=== PATIENT | female | born 1965 | race African-American/Black ===

== ENCOUNTER 2021-11-14 18:33 | Inpatient (IN) | payer MEDICAID, OTHER ==
[~2021-11-14] VITALS: Ht 175.3 cm; Wt 58.6 kg
[2021-11-14] MEDS ORDERED: ASPIRIN 81MG TABLET PO ONE (20:00)
[2021-11-14 20:22] LABS: BASOPHILS % 1.4 % (0.0-2.0); EOSINOPHILS % 0.1 % (0.0-5.0); HEMATOCRIT. 37.4 % (36.0-48.0); HEMOGLOBIN. 12.4 g/dL (12.0-16.0); LYMPHOCYTES % 22.3 % (20.0-50.0); MEAN CORPUSCULAR HEMOGLOBIN 31.7 pg (28.0-32.0); MEAN CORPUSCULAR VOLUME 95.7 fL (81.0-99.0); MEAN PLATELET VOLUME 10.7 fl (7.4-10.4); NEUTROPHILS % 71.2 % (40.0-76.0); PLATELET 230 x1000/uL (130-400); RED BLOOD CELL COUNT 3.91 mill/uL (4.2-5.4); RED CELL DISTRIBUTION WIDTH 15.8 % (11.6-14.6)
[2021-11-14 20:29] LABS: CHLORIDE 110 mEq/L (98-107)
[2021-11-14] MEDS ORDERED: CEFTRIAXONE 1 G PREMIX 50 ML IV ONE (21:30)
[2021-11-14] MEDS ORDERED: SODIUM CHLORIDE 0.9% 1000ML BAG (SEPSIS BOLUS) IV ONE (21:30)
[2021-11-14] MEDS ORDERED: AZITHROMYCIN 500MG/250ML 250 ML IV ONE (21:30)
[2021-11-14] MEDS ORDERED: ENOXAPARIN 80MG/0.8ML SYR SUBCUT ONE (22:00)
[2021-11-14 22:53] LABS: INR 1.3; PARTIAL THROMBOPLASTIN TIME 23.1 sec (23.4-31.0); PROTHROMBIN TIME 13.6 sec (9.6-11.0)
[2021-11-14] MEDS ORDERED: IOHEXOL-350 100 ML BOTTLE ONE (23:30)
[2021-11-14 23:44] LABS: CLARITY URINE CLOUDY (CLEAR); COLOR URINE DARK YELLOW (YELLOW); KETONES URINE TRACE (NEGATIVE); LEUKOCYTE ESTERASE URINE NEGATIVE (NEGATIVE); NITRITE URINE NEGATIVE (NEGATIVE); OCCULT BLOOD URINE NEGATIVE (NEGATIVE); PROTEIN URINE 2+ (NEGATIVE); SPECIFIC GRAVITY URINE 1.056 (1.005-1.030)
[2021-11-15] VITALS (32 sets, daily range): BP systolic 133–174; BP diastolic 85–107
[2021-11-15] MEDS ORDERED: ACETAMINOPHEN 325MG TABLET PO PRN (01:30)
[2021-11-15] MEDS ORDERED: IPRATROPIUM/ALBUTEROL 0.5-3(2.5)MG/3ML NEB HHN PRN ×2 (01:30→02:45)
[2021-11-15] MEDS ORDERED: NOREPINEPHRINE 8MG/250ML PMX 250 ML IV STA (01:48)
[2021-11-15] MEDS ORDERED: NOREPINEPHRINE 8MG/250ML PMX 250 ML IV PRN (02:00)
[2021-11-15] MEDS ORDERED: MIDAZOLAM HCL 100 MG in DEXT 5% WATER 80 ML IV ONE (02:00)
[2021-11-15] MEDS ORDERED: SODIUM POLYSTYRENE SULFONATE 15 G/60 ML BOT PO NR (02:00)
[2021-11-15] MEDS ORDERED: MIDAZOLAM 100MG/100ML PREMIX IV PRN (02:00)
[2021-11-15] MEDS ORDERED: EPINEPHRINE 5 MG in SODIUM CHLORIDE 0.9% 245 ML IV PRN (02:00)
[2021-11-15 02:04] LABS: BG BASE EXCESS -20.1 mmol/L (-2.0-2.0); BG CARBOXYHEMOGLOBIN 0.6 % (0.5-1.5); BG DEOXYHEMOGLOBIN 0.5 % (0.0-5.0); BG FRACTION INSPIRED OXYGEN 100; BG HCO3 ACT 6.8 mmol/L (22.0-26.0); BG METHEMOGLOBIN 0.4 % (0.0-1.5); BG OXYGEN SATURATION 99.5 % (92.0-98.5); BG OXYHEMOGLOBIN 98.5 % (94.0-97.0); BG PCO2 19.8 mmHg (35.0-45.0); BG PH 7.152 (7.350-7.450); BG PO2 299.8 mmHg (75.0-100.0); BG SAMPLE SITE LEFT BRACHIAL; BG TOTAL HEMOGLOBIN 12.5 g/dL (12.0-18.0); BG VENT MODE VENT - AC
[2021-11-15] MEDS ORDERED: SODIUM BICARBONATE 150 MEQ in DEXTROSE 5% WATER 1,000 ML IV SCH (02:15)
[2021-11-15] MEDS ORDERED: SODIUM BICARBONATE 8.4% 1 MEQ/ML 50ML SYR IV ONE ×3 (02:15→10:20)
[2021-11-15] MEDS ORDERED: MIDAZOLAM HCL 100 MG in SODIUM CHLORIDE 0.9% 100 ML IV PRN (02:15)
[2021-11-15] MEDS ORDERED: SODIUM BICARBONATE 8.4% 1 MEQ/ML 50ML SYR IV NR (02:45)
[2021-11-15] MEDS ORDERED: PHENYLEPHRINE 100 MG in DEXT 5% WATER 240 ML IV PRN ×2 (02:45→19:00)
[2021-11-15] MEDS ORDERED: FENTANYL CITRATE/PF 2,500 MCG in SODIUM CHLORIDE 0.9% 200 ML IV PRN ×2 (02:45→18:45)
[2021-11-15 03:23] LABS: CHLORIDE 108 mEq/L (98-107)
[2021-11-15 03:24] LABS: HEMOGLOBIN. 12.5 g/dL (12.0-16.0); MEAN CORPUSCULAR HEMOGLOBIN 31.7 pg (28.0-32.0); MEAN CORPUSCULAR VOLUME 101.2 fL (81.0-99.0); MEAN PLATELET VOLUME 10.1 fl (7.4-10.4); PLATELET 203 x1000/uL (130-400); RED BLOOD CELL COUNT 3.96 mill/uL (4.2-5.4); RED CELL DISTRIBUTION WIDTH 16.9 % (11.6-14.6)
[2021-11-15 03:45] LABS: *BARBITURATES SCREEN URINE NEGATIVE (NEGATIVE)
[2021-11-15 03:46] LABS: *AMPHETAMINES SCREEN URINE NEGATIVE (NEGATIVE); *BENZODIAZEPINES SCREEN URINE NEGATIVE (NEGATIVE); *COCAINE SCREEN URINE PRESUMTIVE POSITIVE (NEGATIVE); METHADONE URINE SCREEN NEGATIVE (NEGATIVE); OPIATES URINE SCREEN NEGATIVE (NEGATIVE); PHENCYCLIDINE URINE SCREEN NEGATIVE (NEGATIVE)
[2021-11-15 03:47] LABS: CANNABINOID URINE SCREEN PRESUMTIVE POSITIVE (NEGATIVE)
[2021-11-15 04:59] LABS: PLATELET ESTIMATE NORMAL
[2021-11-15 05:33] LABS: BG BASE EXCESS -7.1 mmol/L (-2.0-2.0); BG CARBOXYHEMOGLOBIN 0.9 % (0.5-1.5); BG DEOXYHEMOGLOBIN 2.1 % (0.0-5.0); BG FRACTION INSPIRED OXYGEN 60; BG HCO3 ACT 16.2 mmol/L (22.0-26.0); BG METHEMOGLOBIN 0.4 % (0.0-1.5); BG OXYGEN SATURATION 97.9 % (92.0-98.5); BG OXYHEMOGLOBIN 96.6 % (94.0-97.0); BG PH 7.397 (7.350-7.450); BG SAMPLE SITE RIGHT BRACHIAL; BG TOTAL HEMOGLOBIN 13.1 g/dL (12.0-18.0); BG VENT MODE VENT - AC
[2021-11-15] MEDS: IPRATROPIUM/ALBUTEROL 0.5-3(2.5)MG/3ML NEB HHN SCH ×2 (08:49→20:03)
[2021-11-15] MEDS ORDERED: ENOXAPARIN 40MG/0.4ML SYR SUBCUT SCH (09:00)
[2021-11-15] MEDS ORDERED: EPINEPHRINE 0.1MG/ML (1:10,000) 10ML SYR ONE (10:20)
[2021-11-15 15:53] LABS: BG BASE EXCESS 6.9 mmol/L (-2.0-2.0); BG CARBOXYHEMOGLOBIN 0.8 % (0.5-1.5); BG DEOXYHEMOGLOBIN 0.7 % (0.0-5.0); BG FRACTION INSPIRED OXYGEN 60; BG HCO3 ACT 26.8 mmol/L (22.0-26.0); BG METHEMOGLOBIN 0.4 % (0.0-1.5); BG OXYGEN SATURATION 99.3 % (92.0-98.5); BG OXYHEMOGLOBIN 98.1 % (94.0-97.0); BG PCO2 25.5 mmHg (35.0-45.0); BG PO2 182.4 mmHg (75.0-100.0); BG SAMPLE SITE LEFT RADIAL; BG TOTAL HEMOGLOBIN 13.4 g/dL (12.0-18.0)
[2021-11-15] MEDS: ASPIRIN 81MG TABLET NG SCH (16:07)
[2021-11-15] MEDS: FUROSEMIDE 40MG/4ML VIAL IVP SCH (16:07)
[2021-11-15] MEDS: METHYLPREDNISOLONE SOD SUCC 40 MG/ML VIAL IV SCH (16:07)
[2021-11-15 17:00] LABS: BG VENT MODE VENT - AC
[2021-11-15] MEDS: ENOXAPARIN 80MG/0.8ML SYR SUBCUT SCH (17:16)
[2021-11-15] MEDS: PIPERACILLIN/TAZOBACTAM 3.375 G in DEXTROSE 5% WATER 50 ML IV SCH (17:16)
[2021-11-15 17:17] LABS: CREATINE KINASE MB FRACTION 44.4 ng/mL (0.5-3.6)
[2021-11-15] MEDS: MIDAZOLAM HCL 100 MG in SODIUM CHLORIDE 0.9% 80 ML IV PRN (18:26)
[2021-11-15] MEDS: CARVEDILOL 6.25 MG TABLET PO SCH (21:02)
[2021-11-16] VITALS (82 sets, daily range): BP systolic 105–143; BP diastolic 58–95
[2021-11-16] MEDS: METHYLPREDNISOLONE SOD SUCC 40 MG/ML VIAL IV SCH ×4 (00:03→23:16)
[2021-11-16] MEDS: ISOSORBIDE DINITRATE 20MG TABLET NG SCH ×3 (00:04→16:42)
[2021-11-16] MEDS: PIPERACILLIN/TAZOBACTAM 3.375 G in DEXTROSE 5% WATER 50 ML IV SCH ×4 (00:05→21:27)
[2021-11-16] MEDS: IPRATROPIUM/ALBUTEROL 0.5-3(2.5)MG/3ML NEB HHN SCH ×4 (00:26→20:47)
[2021-11-16 06:20] LABS: HEMATOCRIT. 39.1 % (36.0-48.0); HEMOGLOBIN. 12.9 g/dL (12.0-16.0); MEAN CORPUSCULAR HEMOGLOBIN 31.4 pg (28.0-32.0); MEAN CORPUSCULAR VOLUME 95.1 fL (81.0-99.0); PLATELET 200 x1000/uL (130-400); RED BLOOD CELL COUNT 4.11 mill/uL (4.2-5.4); RED CELL DISTRIBUTION WIDTH 16.1 % (11.6-14.6)
[2021-11-16] MEDS: ENOXAPARIN 80MG/0.8ML SYR SUBCUT SCH (06:45)
[2021-11-16 06:46] LABS: CHLORIDE 107 mEq/L (98-107)
[2021-11-16] MEDS: MIDAZOLAM HCL 100 MG in SODIUM CHLORIDE 0.9% 80 ML IV PRN (06:46)
[2021-11-16 06:54] LABS: LDL CHOLESTEROL 70 mg/dL (5-100)
[2021-11-16 06:55] LABS: CREATINE KINASE 995 IU/L (26-192); HDL CHOLESTEROL 26 mg/dL (40-59)
[2021-11-16 08:54] LABS: BG BASE EXCESS 5.6 mmol/L (-2.0-2.0); BG CARBOXYHEMOGLOBIN 0.8 % (0.5-1.5); BG DEOXYHEMOGLOBIN 1.9 % (0.0-5.0); BG FRACTION INSPIRED OXYGEN 30; BG HCO3 ACT 28.6 mmol/L (22.0-26.0); BG METHEMOGLOBIN 0.2 % (0.0-1.5); BG OXYGEN SATURATION 98.1 % (92.0-98.5); BG OXYHEMOGLOBIN 97.1 % (94.0-97.0); BG PCO2 36.2 mmHg (35.0-45.0); BG PH 7.516 (7.350-7.450); BG PO2 104.4 mmHg (75.0-100.0); BG SAMPLE SITE LEFT RADIAL; BG TOTAL HEMOGLOBIN 13.3 g/dL (12.0-18.0); BG VENT MODE VENT - AC
[2021-11-16 09:22] LABS: PLATELET ESTIMATE NORMAL
[2021-11-16] MEDS: FUROSEMIDE 40MG/4ML VIAL IVP SCH (09:25)
[2021-11-16] MEDS: ASPIRIN 81MG TABLET NG SCH (09:26)
[2021-11-16] MEDS: CARVEDILOL 6.25 MG TABLET PO SCH (09:26)
[2021-11-16] MEDS ORDERED: SODIUM CHLORIDE 0.45% 1,000 ML IV ONE (12:15)
[2021-11-16] MEDS ORDERED: CARVEDILOL 6.25 MG TABLET PO NR (12:30)
[2021-11-16] MEDS ORDERED: ALBUMIN HUMAN 12.5G/250ML (5%) IV NR (13:00)
[2021-11-16] MEDS: PANTOPRAZOLE SODIUM 40 MG/VIAL IV SCH (13:20)
[2021-11-16] MEDS: KCL 20MEQ/100ML PREMIX 100 ML IV SCH ×2 (13:50→18:35)
[2021-11-16] MEDS: CARVEDILOL 12.5MG TABLET PO SCH (21:29)
[2021-11-17] VITALS (97 sets, daily range): BP systolic 108–161; BP diastolic 68–118
[2021-11-17] MEDS: IPRATROPIUM/ALBUTEROL 0.5-3(2.5)MG/3ML NEB HHN SCH ×4 (02:17→21:11)
[2021-11-17 05:14] LABS: HEMATOCRIT. 37.3 % (36.0-48.0); HEMOGLOBIN. 12.3 g/dL (12.0-16.0); MEAN CORPUSCULAR HEMOGLOBIN 31.4 pg (28.0-32.0); MEAN CORPUSCULAR VOLUME 95.5 fL (81.0-99.0); MEAN PLATELET VOLUME 11.3 fl (7.4-10.4); PLATELET 181 x1000/uL (130-400)
[2021-11-17] MEDS: PIPERACILLIN/TAZOBACTAM 3.375 G in DEXTROSE 5% WATER 50 ML IV SCH ×3 (05:32→21:10)
[2021-11-17 06:11] LABS: CHLORIDE 112 mEq/L (98-107)
[2021-11-17 06:22] LABS: CREATINE KINASE 416 IU/L (26-192)
[2021-11-17] MEDS: METHYLPREDNISOLONE SOD SUCC 40 MG/ML VIAL IV SCH ×3 (09:38→23:32)
[2021-11-17] MEDS: PANTOPRAZOLE SODIUM 40 MG/VIAL IV SCH (09:38)
[2021-11-17] MEDS: ISOSORBIDE DINITRATE 20MG TABLET NG SCH ×2 (09:39→17:12)
[2021-11-17] MEDS: FUROSEMIDE 40MG/4ML VIAL IVP SCH (09:39)
[2021-11-17] MEDS: ASPIRIN 81MG TABLET NG SCH (09:39)
[2021-11-17] MEDS: ENOXAPARIN 80MG/0.8ML SYR SUBCUT SCH (09:40)
[2021-11-17] MEDS: CARVEDILOL 12.5MG TABLET PO SCH ×2 (09:40→21:10)
[2021-11-17 11:27] LABS: BG BASE EXCESS 1.2 mmol/L (-2.0-2.0); BG CARBOXYHEMOGLOBIN 0.8 % (0.5-1.5); BG FRACTION INSPIRED OXYGEN 30; BG HCO3 ACT 24.8 mmol/L (22.0-26.0); BG METHEMOGLOBIN 0.3 % (0.0-1.5); BG OXYHEMOGLOBIN 96.9 % (94.0-97.0); BG PCO2 35.8 mmHg (35.0-45.0); BG PH 7.458 (7.350-7.450); BG PO2 104.7 mmHg (75.0-100.0); BG SAMPLE SITE LEFT BRACHIAL; BG TOTAL HEMOGLOBIN 13.3 g/dL (12.0-18.0); BG VENT MODE VENT - AC
[2021-11-17] MEDS ORDERED: SILDENAFIL CITRATE 20MG TABLET PO SCH (14:00)
[2021-11-17 14:21] LABS: PLATELET ESTIMATE NORMAL
[2021-11-17] MEDS: CALCIUM GLUCONATE 1GM PREMIX 50 ML IV SCH (21:10)
[2021-11-18] VITALS (94 sets, daily range): BP systolic 100–149; BP diastolic 58–98
[2021-11-18] MEDS: IPRATROPIUM/ALBUTEROL 0.5-3(2.5)MG/3ML NEB HHN SCH ×4 (01:19→20:24)
[2021-11-18] MEDS: PIPERACILLIN/TAZOBACTAM 3.375 G in DEXTROSE 5% WATER 50 ML IV SCH ×3 (05:36→21:10)
[2021-11-18 07:26] LABS: HEMATOCRIT. 37.9 % (36.0-48.0); HEMOGLOBIN. 12.5 g/dL (12.0-16.0); MEAN CORPUSCULAR HEMOGLOBIN 31.3 pg (28.0-32.0); MEAN CORPUSCULAR VOLUME 95.2 fL (81.0-99.0); PLATELET 166 x1000/uL (130-400); RED BLOOD CELL COUNT 3.98 mill/uL (4.2-5.4); RED CELL DISTRIBUTION WIDTH 16.3 % (11.6-14.6)
[2021-11-18 07:51] LABS: PHOSPHORUS 5.5 mg/dL (2.5-4.9)
[2021-11-18] MEDS: ASPIRIN 81MG TABLET NG SCH (09:00)
[2021-11-18] MEDS: METHYLPREDNISOLONE SOD SUCC 40 MG/ML VIAL IV SCH ×2 (09:00→16:13)
[2021-11-18] MEDS: CALCIUM GLUCONATE 1GM PREMIX 50 ML IV SCH (09:00)
[2021-11-18] MEDS: PANTOPRAZOLE SODIUM 40 MG/VIAL IV SCH (09:01)
[2021-11-18] MEDS: ENOXAPARIN 80MG/0.8ML SYR SUBCUT SCH (09:01)
[2021-11-18] MEDS: ISOSORBIDE DINITRATE 20MG TABLET NG SCH ×2 (09:01→16:14)
[2021-11-18] MEDS: CARVEDILOL 12.5MG TABLET PO SCH ×2 (09:01→21:11)
[2021-11-18 10:25] LABS: BG BASE EXCESS 1.3 mmol/L (-2.0-2.0); BG CARBOXYHEMOGLOBIN 0.7 % (0.5-1.5); BG DEOXYHEMOGLOBIN 1.3 % (0.0-5.0); BG FRACTION INSPIRED OXYGEN 30; BG HCO3 ACT 24.6 mmol/L (22.0-26.0); BG OXYGEN SATURATION 98.7 % (92.0-98.5); BG PCO2 34.7 mmHg (35.0-45.0); BG PH 7.468 (7.350-7.450); BG PO2 130.6 mmHg (75.0-100.0); BG SAMPLE SITE RIGHT RADIAL; BG TOTAL HEMOGLOBIN 12.9 g/dL (12.0-18.0); BG VENT MODE VENT - AC
[2021-11-18] MEDS: DEXTROSE 5% WATER 1,000 ML IV SCH (10:40)
[2021-11-18] MEDS ORDERED: POTASSIUM CHLORIDE 20MEQ/PACKET PO SCH (11:00)
[2021-11-18 11:21] LABS: PLATELET ESTIMATE NORMAL
[2021-11-18] MEDS ORDERED: KCL 20MEQ/100ML PREMIX 100 ML IV SCH (12:00)
[2021-11-18] MEDS ORDERED: CALCIUM 1250MG TABLET (500MG ELEMENTAL CALCIUM) NG SCH (13:00)
[2021-11-18] MEDS: CALCIUM 1250MG TABLET (500MG ELEMENTAL CALCIUM) NG SCH ×2 (13:45→16:13)
[2021-11-19] VITALS (95 sets, daily range): BP systolic 111–148; BP diastolic 61–95
[2021-11-19] MEDS: IPRATROPIUM/ALBUTEROL 0.5-3(2.5)MG/3ML NEB HHN SCH ×4 (00:19→20:35)
[2021-11-19] MEDS: DEXTROSE 5% WATER 1,000 ML IV SCH ×2 (00:20→13:19)
[2021-11-19] MEDS: METHYLPREDNISOLONE SOD SUCC 40 MG/ML VIAL IV SCH ×4 (00:20→23:50)
[2021-11-19] MEDS: PIPERACILLIN/TAZOBACTAM 3.375 G in DEXTROSE 5% WATER 50 ML IV SCH ×3 (05:30→21:38)
[2021-11-19 06:07] LABS: HEMOGLOBIN. 11.8 g/dL (12.0-16.0); MEAN CORPUSCULAR HEMOGLOBIN 31.6 pg (28.0-32.0); MEAN CORPUSCULAR VOLUME 96.2 fL (81.0-99.0); MEAN PLATELET VOLUME 12.2 fl (7.4-10.4); PLATELET 161 x1000/uL (130-400); RED BLOOD CELL COUNT 3.74 mill/uL (4.2-5.4); RED CELL DISTRIBUTION WIDTH 16.4 % (11.6-14.6)
[2021-11-19 06:18] LABS: PHOSPHORUS 2.9 mg/dL (2.5-4.9)
[2021-11-19] MEDS: ENOXAPARIN 80MG/0.8ML SYR SUBCUT SCH (09:26)
[2021-11-19] MEDS: PANTOPRAZOLE SODIUM 40 MG/VIAL IV SCH (09:26)
[2021-11-19] MEDS: ASPIRIN 81MG TABLET NG SCH (09:26)
[2021-11-19] MEDS: CARVEDILOL 12.5MG TABLET PO SCH ×2 (09:26→21:39)
[2021-11-19] MEDS: CALCIUM 1250MG TABLET (500MG ELEMENTAL CALCIUM) NG SCH ×3 (09:26→18:10)
[2021-11-19] MEDS: ISOSORBIDE DINITRATE 20MG TABLET NG SCH ×2 (09:27→18:10)
[2021-11-19] MEDS ORDERED: MIDAZOLAM HCL 100 MG in SODIUM CHLORIDE 0.9% 80 ML IV PRN (12:00)
[2021-11-19] MEDS ORDERED: FENTANYL CITRATE/PF 2,500 MCG in SODIUM CHLORIDE 0.9% 200 ML IV PRN (12:05)
[2021-11-19] MEDS: FENTANYL CITRATE/PF 2,500 MCG in SODIUM CHLORIDE 0.9% 200 ML IV PRN (13:36)
[2021-11-19 15:56] LABS: PLATELET ESTIMATE NORMAL
[2021-11-20] VITALS (83 sets, daily range): BP systolic 113–155; BP diastolic 64–95
[2021-11-20] MEDS: IPRATROPIUM/ALBUTEROL 0.5-3(2.5)MG/3ML NEB HHN SCH ×4 (01:35→20:35)
[2021-11-20] MEDS: DEXTROSE 5% WATER 1,000 ML IV SCH ×2 (02:43→17:46)
[2021-11-20] MEDS: PIPERACILLIN/TAZOBACTAM 3.375 G in DEXTROSE 5% WATER 50 ML IV SCH ×2 (06:04→13:20)
[2021-11-20] MEDS: ENOXAPARIN 80MG/0.8ML SYR SUBCUT SCH (09:18)
[2021-11-20] MEDS: PANTOPRAZOLE SODIUM 40 MG/VIAL IV SCH (09:18)
[2021-11-20] MEDS: ASPIRIN 81MG TABLET NG SCH (09:18)
[2021-11-20] MEDS: CALCIUM 1250MG TABLET (500MG ELEMENTAL CALCIUM) NG SCH ×3 (09:18→17:45)
[2021-11-20] MEDS: METHYLPREDNISOLONE SOD SUCC 40 MG/ML VIAL IV SCH ×3 (09:18→23:10)
[2021-11-20] MEDS: CARVEDILOL 12.5MG TABLET PO SCH ×2 (09:18→20:22)
[2021-11-20] MEDS: ISOSORBIDE DINITRATE 20MG TABLET NG SCH ×2 (09:19→17:48)
[2021-11-20 10:33] LABS: BG CARBOXYHEMOGLOBIN 0.3 % (0.5-1.5); BG FRACTION INSPIRED OXYGEN 30; BG HCO3 ACT 23.6 mmol/L (22.0-26.0); BG METHEMOGLOBIN 0.1 % (0.0-1.5); BG OXYHEMOGLOBIN 97.6 % (94.0-97.0); BG PCO2 39.1 mmHg (35.0-45.0); BG PH 7.399 (7.350-7.450); BG SAMPLE SITE LEFT RADIAL; BG TOTAL HEMOGLOBIN 12.7 g/dL (12.0-18.0); BG TOTAL RESPIRATORY RATE 15 b/min; BG VENT MODE VENT - AC
[2021-11-20] MEDS: ONDANSETRON HCL 4MG/2ML INJ IV PRN (13:38)
[2021-11-20 16:42] LABS: HEMATOCRIT. 36.8 % (36.0-48.0); HEMOGLOBIN. 11.9 g/dL (12.0-16.0); MEAN CORPUSCULAR HEMOGLOBIN 31.1 pg (28.0-32.0); MEAN CORPUSCULAR VOLUME 95.7 fL (81.0-99.0); MEAN PLATELET VOLUME 11.9 fl (7.4-10.4); PLATELET 160 x1000/uL (130-400); RED BLOOD CELL COUNT 3.84 mill/uL (4.2-5.4); RED CELL DISTRIBUTION WIDTH 15.2 % (11.6-14.6)
[2021-11-20] MEDS ORDERED: FENTANYL CITRATE/PF 2,500 MCG in SODIUM CHLORIDE 0.9% 200 ML IV PRN (17:00)
[2021-11-20 17:13] LABS: PLATELET ESTIMATE NORMAL
[2021-11-20] MEDS: FENTANYL CITRATE/PF 2,500 MCG in SODIUM CHLORIDE 0.9% 200 ML IV PRN (17:26)
[2021-11-21] VITALS (71 sets, daily range): BP systolic 111–171; BP diastolic 45–123
[2021-11-21] MEDS: IPRATROPIUM/ALBUTEROL 0.5-3(2.5)MG/3ML NEB HHN SCH ×4 (00:30→21:30)
[2021-11-21] MEDS: DEXTROSE 5% WATER 1,000 ML IV SCH ×2 (05:15→18:42)
[2021-11-21 06:31] LABS: HEMATOCRIT. 35.5 % (36.0-48.0); HEMOGLOBIN. 11.4 g/dL (12.0-16.0); MEAN CORPUSCULAR HEMOGLOBIN 30.8 pg (28.0-32.0); MEAN CORPUSCULAR VOLUME 96.1 fL (81.0-99.0); MEAN PLATELET VOLUME 12.3 fl (7.4-10.4); PLATELET 152 x1000/uL (130-400); RED BLOOD CELL COUNT 3.69 mill/uL (4.2-5.4); RED CELL DISTRIBUTION WIDTH 15.6 % (11.6-14.6)
[2021-11-21 06:54] LABS: PHOSPHORUS 2.7 mg/dL (2.5-4.9)
[2021-11-21 07:54] LABS: BG BASE EXCESS -1.4 mmol/L (-2.0-2.0); BG CARBOXYHEMOGLOBIN 0.4 % (0.5-1.5); BG DEOXYHEMOGLOBIN 1.8 % (0.0-5.0); BG HCO3 ACT 22.7 mmol/L (22.0-26.0); BG METHEMOGLOBIN 0.1 % (0.0-1.5); BG OXYGEN SATURATION 98.2 % (92.0-98.5); BG OXYHEMOGLOBIN 97.7 % (94.0-97.0); BG PCO2 36.2 mmHg (35.0-45.0); BG PH 7.416 (7.350-7.450); BG PO2 108.8 mmHg (75.0-100.0); BG SAMPLE SITE RIGHT RADIAL; BG TOTAL HEMOGLOBIN 12.4 g/dL (12.0-18.0); BG VENT MODE VENT - AC
[2021-11-21] MEDS: METHYLPREDNISOLONE SOD SUCC 40 MG/ML VIAL IV SCH (08:05)
[2021-11-21 09:00] LABS: PLATELET ESTIMATE NORMAL
[2021-11-21] MEDS: CARVEDILOL 12.5MG TABLET PO SCH ×2 (09:50→22:10)
[2021-11-21] MEDS: CALCIUM 1250MG TABLET (500MG ELEMENTAL CALCIUM) NG SCH ×3 (09:50→17:29)
[2021-11-21] MEDS: PANTOPRAZOLE SODIUM 40 MG/VIAL IV SCH (09:50)
[2021-11-21] MEDS: ASPIRIN 81MG TABLET NG SCH (09:51)
[2021-11-21] MEDS: ISOSORBIDE DINITRATE 20MG TABLET NG SCH ×2 (09:51→17:29)
[2021-11-21] MEDS: ENOXAPARIN 80MG/0.8ML SYR SUBCUT SCH (09:51)
[2021-11-21] MEDS: CLONIDINE 0.1MG TABLET PO PRN (15:16)
[2021-11-21] MEDS: ONDANSETRON HCL 4MG/2ML INJ IV PRN (17:01)
[2021-11-21] MEDS ORDERED: CARVEDILOL 3.125 MG TABLET NG SCH (21:00)
[2021-11-22] VITALS (134 sets, daily range): BP systolic 70–197; BP diastolic 41–140
[2021-11-22] MEDS: IPRATROPIUM/ALBUTEROL 0.5-3(2.5)MG/3ML NEB HHN SCH ×4 (01:14→20:00)
[2021-11-22] MEDS: FENTANYL 2500MCG/250ML PMX 250 ML IV PRN ×2 (02:00→21:05)
[2021-11-22 06:06] LABS: BASOPHILS % 0.1 % (0.0-2.0); EOSINOPHILS % 0.6 % (0.0-5.0); LYMPHOCYTES % 13.7 % (20.0-50.0); MEAN CORPUSCULAR HEMOGLOBIN 30.7 pg (28.0-32.0); MEAN CORPUSCULAR VOLUME 95.2 fL (81.0-99.0); MEAN PLATELET VOLUME 12.5 fl (7.4-10.4); MONOCYTES % 8.1 % (2.0-8.0); NEUTROPHILS % 77.5 % (40.0-76.0); PLATELET 173 x1000/uL (130-400); RED BLOOD CELL COUNT 3.89 mill/uL (4.2-5.4); RED CELL DISTRIBUTION WIDTH 15.4 % (11.6-14.6)
[2021-11-22 06:37] LABS: PHOSPHORUS 2.4 mg/dL (2.5-4.9)
[2021-11-22] MEDS ORDERED: ATROPINE SULFATE 1MG/10ML SYR ONE (07:46)
[2021-11-22] MEDS ORDERED: EPINEPHRINE 0.1MG/ML (1:10,000) 10ML SYR ONE (07:46)
[2021-11-22] MEDS ORDERED: SODIUM BICARBONATE 8.4% 1 MEQ/ML 50ML SYR IV ONE (07:46)
[2021-11-22] MEDS: ASPIRIN 81MG TABLET NG SCH (08:32)
[2021-11-22] MEDS: CALCIUM 1250MG TABLET (500MG ELEMENTAL CALCIUM) NG SCH ×3 (08:33→16:00)
[2021-11-22] MEDS: ISOSORBIDE DINITRATE 20MG TABLET NG SCH ×2 (08:33→16:00)
[2021-11-22] MEDS: CARVEDILOL 12.5MG TABLET PO SCH ×2 (08:33→20:51)
[2021-11-22] MEDS: ENOXAPARIN 80MG/0.8ML SYR SUBCUT SCH (08:34)
[2021-11-22] MEDS: PANTOPRAZOLE SODIUM 40 MG/VIAL IV SCH (08:35)
[2021-11-22 08:59] LABS: BG BASE EXCESS 0.7 mmol/L (-2.0-2.0); BG CARBOXYHEMOGLOBIN 0.1 % (0.5-1.5); BG DEOXYHEMOGLOBIN 1.4 % (0.0-5.0); BG FRACTION INSPIRED OXYGEN 30; BG HCO3 ACT 24.8 mmol/L (22.0-26.0); BG METHEMOGLOBIN 0.3 % (0.0-1.5); BG OXYGEN SATURATION 98.6 % (92.0-98.5); BG OXYHEMOGLOBIN 98.2 % (94.0-97.0); BG PCO2 37.8 mmHg (35.0-45.0); BG PH 7.434 (7.350-7.450); BG PO2 125.6 mmHg (75.0-100.0); BG SAMPLE SITE RIGHT RADIAL; BG VENT MODE VENT - AC
[2021-11-22] MEDS ORDERED: METHYLPREDNISOLONE SOD SUCC 40 MG/ML VIAL IV SCH (09:00)
[2021-11-22] MEDS ORDERED: POTASSIUM PHOS,M-BASIC-D-BASIC 15 MMOL in DEXT 5% WATER 245 ML IV NR (11:00)
[2021-11-22] MEDS: ONDANSETRON HCL 4MG/2ML INJ IV PRN (12:55)
[2021-11-22] MEDS: CLONIDINE 0.1MG TABLET PO PRN (14:15)
[2021-11-22] MEDS: LORAZEPAM 2MG/ML CPJ IV PRN (16:00)
[2021-11-22] MEDS ORDERED: MORPHINE SULFATE 2 MG/ML CPJ (NOT FOR IM USE) IV SCH (18:15)
[2021-11-22] MEDS ORDERED: PHENYLEPHRINE 100 MG in DEXT 5% WATER 240 ML IV PRN (19:15)
[2021-11-22 19:24] LABS: BG BASE EXCESS -9.6 mmol/L (-2.0-2.0); BG CARBOXYHEMOGLOBIN 0.1 % (0.5-1.5); BG DEOXYHEMOGLOBIN 0.1 % (0.0-5.0); BG FRACTION INSPIRED OXYGEN 100; BG HCO3 ACT 15.8 mmol/L (22.0-26.0); BG METHEMOGLOBIN 0.4 % (0.0-1.5); BG OXYGEN SATURATION 99.9 % (92.0-98.5); BG OXYHEMOGLOBIN 99.4 % (94.0-97.0); BG PH 7.298 (7.350-7.450); BG PO2 493.3 mmHg (75.0-100.0); BG SAMPLE SITE RIGHT RADIAL; BG TOTAL HEMOGLOBIN 12.9 g/dL (12.0-18.0); BG VENT MODE VENT - AC
[2021-11-22] MEDS ORDERED: SODIUM BICARBONATE 8.4% 1 MEQ/ML 50ML SYR IV NR (20:15)
[2021-11-23] VITALS (98 sets, daily range): BP systolic 97–160; BP diastolic 60–111
[2021-11-23] MEDS: IPRATROPIUM/ALBUTEROL 0.5-3(2.5)MG/3ML NEB HHN SCH ×4 (01:30→19:42)
[2021-11-23 05:42] LABS: EOSINOPHILS % 0.2 % (0.0-5.0); HEMATOCRIT. 36.5 % (36.0-48.0); HEMOGLOBIN. 11.7 g/dL (12.0-16.0); LYMPHOCYTES % 7.8 % (20.0-50.0); MEAN CORPUSCULAR HEMOGLOBIN 30.4 pg (28.0-32.0); MEAN CORPUSCULAR VOLUME 94.5 fL (81.0-99.0); MEAN PLATELET VOLUME 12.7 fl (7.4-10.4); MONOCYTES % 7.3 % (2.0-8.0); NEUTROPHILS % 84.7 % (40.0-76.0); PLATELET 230 x1000/uL (130-400); RED BLOOD CELL COUNT 3.86 mill/uL (4.2-5.4); RED CELL DISTRIBUTION WIDTH 15.6 % (11.6-14.6)
[2021-11-23 06:01] LABS: CHLORIDE 108 mEq/L (98-107)
[2021-11-23 06:12] LABS: PHOSPHORUS 3.2 mg/dL (2.5-4.9)
[2021-11-23 06:15] LABS: CREATINE KINASE 98 IU/L (26-192)
[2021-11-23 08:09] LABS: BG BASE EXCESS 3.5 mmol/L (-2.0-2.0); BG CARBOXYHEMOGLOBIN 0.6 % (0.5-1.5); BG DEOXYHEMOGLOBIN 1.7 % (0.0-5.0); BG HCO3 ACT 27.3 mmol/L (22.0-26.0); BG METHEMOGLOBIN 0.3 % (0.0-1.5); BG OXYGEN SATURATION 98.3 % (92.0-98.5); BG OXYHEMOGLOBIN 97.4 % (94.0-97.0); BG PCO2 38.6 mmHg (35.0-45.0); BG PH 7.467 (7.350-7.450); BG PO2 108.1 mmHg (75.0-100.0); BG SAMPLE SITE RIGHT RADIAL; BG TOTAL HEMOGLOBIN 12.8 g/dL (12.0-18.0); BG VENT MODE VENT - AC
[2021-11-23] MEDS: PANTOPRAZOLE SODIUM 40 MG/VIAL IV SCH (08:40)
[2021-11-23] MEDS: CALCIUM 1250MG TABLET (500MG ELEMENTAL CALCIUM) NG SCH ×3 (08:40→16:05)
[2021-11-23] MEDS: CARVEDILOL 12.5MG TABLET PO SCH ×2 (08:41→20:45)
[2021-11-23] MEDS: ASPIRIN 81MG TABLET NG SCH (08:42)
[2021-11-23] MEDS: ISOSORBIDE DINITRATE 20MG TABLET NG SCH ×2 (08:42→16:05)
[2021-11-23] MEDS ORDERED: ENOXAPARIN 60MG/0.6ML SYR SUBCUT SCH (09:00)
[2021-11-23] MEDS ORDERED: MORPHINE SULFATE 2 MG/ML CPJ (NOT FOR IM USE) IV NR (16:00)
[2021-11-23] MEDS: KCL 20MEQ/100ML PREMIX 100 ML IV SCH ×2 (16:28→18:36)
[2021-11-23] MEDS: LORAZEPAM 2MG/ML CPJ IV PRN (20:45)
[2021-11-24] VITALS (91 sets, daily range): BP systolic 94–159; BP diastolic 59–102
[2021-11-24] MEDS: IPRATROPIUM/ALBUTEROL 0.5-3(2.5)MG/3ML NEB HHN SCH ×4 (00:05→21:14)
[2021-11-24 06:02] LABS: HEMATOCRIT. 33.8 % (36.0-48.0); MEAN CORPUSCULAR HEMOGLOBIN 30.8 pg (28.0-32.0); MEAN CORPUSCULAR VOLUME 94.6 fL (81.0-99.0); MEAN PLATELET VOLUME 12.3 fl (7.4-10.4); PLATELET 235 x1000/uL (130-400); RED BLOOD CELL COUNT 3.58 mill/uL (4.2-5.4); RED CELL DISTRIBUTION WIDTH 15.4 % (11.6-14.6)
[2021-11-24 06:26] LABS: PHOSPHORUS 1.7 mg/dL (2.5-4.9)
[2021-11-24] MEDS: ISOSORBIDE DINITRATE 20MG TABLET NG SCH ×2 (08:27→18:31)
[2021-11-24] MEDS: CALCIUM 1250MG TABLET (500MG ELEMENTAL CALCIUM) NG SCH ×3 (08:27→18:31)
[2021-11-24] MEDS: PANTOPRAZOLE SODIUM 40 MG/VIAL IV SCH (08:27)
[2021-11-24] MEDS: CLONIDINE 0.1MG TABLET PO PRN (08:28)
[2021-11-24] MEDS: CARVEDILOL 12.5MG TABLET PO SCH ×2 (08:28→23:07)
[2021-11-24] MEDS: ASPIRIN 81MG TABLET NG SCH (08:28)
[2021-11-24] MEDS: ENOXAPARIN 60MG/0.6ML SYR SUBCUT SCH (08:29)
[2021-11-24 09:10] LABS: BG BASE EXCESS 1.6 mmol/L (-2.0-2.0); BG CARBOXYHEMOGLOBIN 0.6 % (0.5-1.5); BG DEOXYHEMOGLOBIN 1.3 % (0.0-5.0); BG FRACTION INSPIRED OXYGEN 30; BG HCO3 ACT 24.6 mmol/L (22.0-26.0); BG METHEMOGLOBIN 0.1 % (0.0-1.5); BG OXYGEN SATURATION 98.7 % (92.0-98.5); BG PCO2 33.3 mmHg (35.0-45.0); BG PH 7.486 (7.350-7.450); BG PO2 126.1 mmHg (75.0-100.0); BG SAMPLE SITE RIGHT RADIAL; BG TOTAL HEMOGLOBIN 11.7 g/dL (12.0-18.0); BG VENT MODE VENT - AC
[2021-11-24] MEDS ORDERED: POTASSIUM PHOS,M-BASIC-D-BASIC 15 MMOL in DEXT 5% WATER 245 ML IV NR (09:30)
[2021-11-24 11:41] LABS: PLATELET ESTIMATE NORMAL
[2021-11-24] MEDS: FENTANYL 2500MCG/250ML PMX 250 ML IV PRN (19:00)
[2021-11-25] VITALS (97 sets, daily range): BP systolic 103–155; BP diastolic 56–100
[2021-11-25] MEDS: IPRATROPIUM/ALBUTEROL 0.5-3(2.5)MG/3ML NEB HHN SCH ×4 (02:54→19:50)
[2021-11-25 05:25] LABS: BASOPHILS % 0.1 % (0.0-2.0); EOSINOPHILS % 1.5 % (0.0-5.0); HEMATOCRIT. 30.3 % (36.0-48.0); HEMOGLOBIN. 9.7 g/dL (12.0-16.0); LYMPHOCYTES % 7.5 % (20.0-50.0); MEAN CORPUSCULAR HEMOGLOBIN 30.2 pg (28.0-32.0); MEAN CORPUSCULAR VOLUME 94.6 fL (81.0-99.0); MEAN PLATELET VOLUME 11.8 fl (7.4-10.4); NEUTROPHILS % 84.9 % (40.0-76.0); PLATELET 252 x1000/uL (130-400); RED CELL DISTRIBUTION WIDTH 15.5 % (11.6-14.6)
[2021-11-25 05:33] LABS: PHOSPHORUS 2.3 mg/dL (2.5-4.9)
[2021-11-25 08:05] LABS: BG BASE EXCESS 1.5 mmol/L (-2.0-2.0); BG CARBOXYHEMOGLOBIN 0.3 % (0.5-1.5); BG DEOXYHEMOGLOBIN 2.1 % (0.0-5.0); BG HCO3 ACT 25.1 mmol/L (22.0-26.0); BG METHEMOGLOBIN 0.1 % (0.0-1.5); BG OXYGEN SATURATION 97.9 % (92.0-98.5); BG OXYHEMOGLOBIN 97.5 % (94.0-97.0); BG PCO2 35.7 mmHg (35.0-45.0); BG PH 7.465 (7.350-7.450); BG PO2 101.5 mmHg (75.0-100.0); BG SAMPLE SITE RIGHT RADIAL; BG TOTAL HEMOGLOBIN 10.8 g/dL (12.0-18.0); BG VENT MODE VENT - SIMV
[2021-11-25] MEDS: ENOXAPARIN 60MG/0.6ML SYR SUBCUT SCH (08:15)
[2021-11-25] MEDS: PANTOPRAZOLE SODIUM 40 MG/VIAL IV SCH (08:15)
[2021-11-25] MEDS: ISOSORBIDE DINITRATE 20MG TABLET NG SCH ×2 (08:15→17:25)
[2021-11-25] MEDS: CARVEDILOL 12.5MG TABLET PO SCH (08:16)
[2021-11-25] MEDS: ASPIRIN 81MG TABLET NG SCH (08:16)
[2021-11-25] MEDS: CALCIUM 1250MG TABLET (500MG ELEMENTAL CALCIUM) NG SCH ×3 (08:17→17:25)
[2021-11-25] MEDS ORDERED: POTASSIUM PHOS,M-BASIC-D-BASIC 15 MMOL in DEXT 5% WATER 245 ML IV SCH (11:00)
[2021-11-26] VITALS (71 sets, daily range): BP systolic 108–147; BP diastolic 57–99
[2021-11-26] MEDS: CARVEDILOL 12.5MG TABLET PO SCH ×3 (00:08→20:45)
[2021-11-26] MEDS: FENTANYL 2500MCG/250ML PMX 250 ML IV PRN (02:38)
[2021-11-26 05:41] LABS: BASOPHILS % 0.1 % (0.0-2.0); EOSINOPHILS % 2.7 % (0.0-5.0); HEMATOCRIT. 28.9 % (36.0-48.0); HEMOGLOBIN. 9.4 g/dL (12.0-16.0); LYMPHOCYTES % 13.2 % (20.0-50.0); MEAN CORPUSCULAR HEMOGLOBIN 31.1 pg (28.0-32.0); MEAN CORPUSCULAR VOLUME 95.4 fL (81.0-99.0); MEAN PLATELET VOLUME 11.6 fl (7.4-10.4); MONOCYTES % 8.8 % (2.0-8.0); NEUTROPHILS % 75.2 % (40.0-76.0); PLATELET 286 x1000/uL (130-400); RED BLOOD CELL COUNT 3.03 mill/uL (4.2-5.4); RED CELL DISTRIBUTION WIDTH 15.1 % (11.6-14.6)
[2021-11-26 06:14] LABS: PHOSPHORUS 2.9 mg/dL (2.5-4.9)
[2021-11-26] MEDS ORDERED: LIDOCAINE HCL 1% 20ML VIAL (Pyxis) INJ ONE (07:55)
[2021-11-26] MEDS: PANTOPRAZOLE SODIUM 40 MG/VIAL IV SCH (08:12)
[2021-11-26] MEDS: CALCIUM 1250MG TABLET (500MG ELEMENTAL CALCIUM) NG SCH ×3 (08:12→18:53)
[2021-11-26] MEDS: ASPIRIN 81MG TABLET NG SCH (08:12)
[2021-11-26] MEDS: ISOSORBIDE DINITRATE 20MG TABLET NG SCH ×2 (08:13→18:06)
[2021-11-26] MEDS: ENOXAPARIN 60MG/0.6ML SYR SUBCUT SCH (08:14)
[2021-11-26 08:50] LABS: BG CARBOXYHEMOGLOBIN 0.3 % (0.5-1.5); BG DEOXYHEMOGLOBIN 1.5 % (0.0-5.0); BG HCO3 ACT 24.5 mmol/L (22.0-26.0); BG METHEMOGLOBIN 0.1 % (0.0-1.5); BG OXYGEN SATURATION 98.5 % (92.0-98.5); BG OXYHEMOGLOBIN 98.1 % (94.0-97.0); BG PCO2 39.3 mmHg (35.0-45.0); BG PH 7.413 (7.350-7.450); BG PO2 134.1 mmHg (75.0-100.0); BG SAMPLE SITE RIGHT RADIAL; BG TOTAL HEMOGLOBIN 10.3 g/dL (12.0-18.0); BG VENT MODE VENT - AC
[2021-11-26] MEDS: IPRATROPIUM/ALBUTEROL 0.5-3(2.5)MG/3ML NEB HHN SCH ×3 (08:59→20:16)
[2021-11-26 17:40] LABS: BG BASE EXCESS -1.2 mmol/L (-2.0-2.0); BG CARBOXYHEMOGLOBIN 0.3 % (0.5-1.5); BG DEOXYHEMOGLOBIN 1.2 % (0.0-5.0); BG METHEMOGLOBIN 0.3 % (0.0-1.5); BG OXYGEN SATURATION 98.8 % (92.0-98.5); BG OXYHEMOGLOBIN 98.2 % (94.0-97.0); BG PCO2 36.4 mmHg (35.0-45.0); BG PH 7.418 (7.350-7.450); BG PO2 136.2 mmHg (75.0-100.0); BG SAMPLE SITE RIGHT RADIAL; BG TOTAL HEMOGLOBIN 10.8 g/dL (12.0-18.0); BG VENT MODE VENT - SIMV
[2021-11-27] VITALS (87 sets, daily range): BP systolic 104–161; BP diastolic 62–125
[2021-11-27] MEDS: IPRATROPIUM/ALBUTEROL 0.5-3(2.5)MG/3ML NEB HHN SCH ×4 (02:15→20:29)
[2021-11-27 05:56] LABS: BASOPHILS % 0.6 % (0.0-2.0); EOSINOPHILS % 2.3 % (0.0-5.0); HEMATOCRIT. 28.6 % (36.0-48.0); HEMOGLOBIN. 9.4 g/dL (12.0-16.0); LYMPHOCYTES % 15.7 % (20.0-50.0); MEAN CORPUSCULAR HEMOGLOBIN 31.2 pg (28.0-32.0); MEAN CORPUSCULAR VOLUME 95.2 fL (81.0-99.0); MONOCYTES % 9.1 % (2.0-8.0); NEUTROPHILS % 72.3 % (40.0-76.0); RED CELL DISTRIBUTION WIDTH 14.7 % (11.6-14.6)
[2021-11-27 06:31] LABS: PHOSPHORUS 3.2 mg/dL (2.5-4.9)
[2021-11-27 08:18] LABS: MEAN PLATELET VOLUME 10.8 fl (7.4-10.4); PLATELET 348 x1000/uL (130-400)
[2021-11-27] MEDS: PANTOPRAZOLE SODIUM 40 MG/VIAL IV SCH (08:41)
[2021-11-27] MEDS: CALCIUM 1250MG TABLET (500MG ELEMENTAL CALCIUM) NG SCH ×3 (08:42→16:09)
[2021-11-27] MEDS: CARVEDILOL 12.5MG TABLET PO SCH ×2 (08:42→21:31)
[2021-11-27] MEDS: ASPIRIN 81MG TABLET NG SCH (08:42)
[2021-11-27] MEDS: ISOSORBIDE DINITRATE 20MG TABLET NG SCH ×2 (08:42→16:09)
[2021-11-27] MEDS: ENOXAPARIN 60MG/0.6ML SYR SUBCUT SCH (08:44)
[2021-11-27 09:29] LABS: BG BASE EXCESS -0.3 mmol/L (-2.0-2.0); BG CARBOXYHEMOGLOBIN 0.2 % (0.5-1.5); BG FRACTION INSPIRED OXYGEN 40; BG METHEMOGLOBIN 0.3 % (0.0-1.5); BG OXYHEMOGLOBIN 98.5 % (94.0-97.0); BG PCO2 43.3 mmHg (35.0-45.0); BG PH 7.379 (7.350-7.450); BG PO2 150.3 mmHg (75.0-100.0); BG SAMPLE SITE RIGHT RADIAL; BG TOTAL HEMOGLOBIN 10.7 g/dL (12.0-18.0); BG VENT MODE VENT - SIMV
[2021-11-27 12:55] LABS: BG BASE EXCESS 0.4 mmol/L (-2.0-2.0); BG CARBOXYHEMOGLOBIN 0.1 % (0.5-1.5); BG DEOXYHEMOGLOBIN 0.8 % (0.0-5.0); BG FRACTION INSPIRED OXYGEN 40; BG HCO3 ACT 24.9 mmol/L (22.0-26.0); BG METHEMOGLOBIN 0.3 % (0.0-1.5); BG OXYGEN SATURATION 99.2 % (92.0-98.5); BG OXYHEMOGLOBIN 98.8 % (94.0-97.0); BG PCO2 39.5 mmHg (35.0-45.0); BG PH 7.417 (7.350-7.450); BG PO2 170.4 mmHg (75.0-100.0); BG SAMPLE SITE RIGHT RADIAL; BG TOTAL HEMOGLOBIN 10.8 g/dL (12.0-18.0); BG VENT MODE VENT - CPAP
[2021-11-27 23:34] LABS: BG BASE EXCESS -1.7 mmol/L (-2.0-2.0); BG CARBOXYHEMOGLOBIN 0.3 % (0.5-1.5); BG DEOXYHEMOGLOBIN 5.5 % (0.0-5.0); BG FRACTION INSPIRED OXYGEN 40; BG HCO3 ACT 21.3 mmol/L (22.0-26.0); BG METHEMOGLOBIN 0.2 % (0.0-1.5); BG OXYGEN SATURATION 94.5 % (92.0-98.5); BG PCO2 30.3 mmHg (35.0-45.0); BG PH 7.464 (7.350-7.450); BG SAMPLE SITE RIGHT RADIAL; BG TOTAL HEMOGLOBIN 11.1 g/dL (12.0-18.0); BG VENT MODE COOL AEROSOL
[2021-11-28] VITALS (52 sets, daily range): BP systolic 129–168; BP diastolic 69–108
[2021-11-28] MEDS: IPRATROPIUM/ALBUTEROL 0.5-3(2.5)MG/3ML NEB HHN SCH ×4 (00:12→19:59)
[2021-11-28] MEDS: CLONIDINE 0.1MG TABLET PO PRN (02:40)
[2021-11-28 06:17] LABS: BASOPHILS % 0.6 % (0.0-2.0); EOSINOPHILS % 1.2 % (0.0-5.0); HEMATOCRIT. 31.2 % (36.0-48.0); HEMOGLOBIN. 10.1 g/dL (12.0-16.0); MEAN CORPUSCULAR HEMOGLOBIN 30.9 pg (28.0-32.0); MEAN CORPUSCULAR VOLUME 95.1 fL (81.0-99.0); MEAN PLATELET VOLUME 11.2 fl (7.4-10.4); MONOCYTES % 5.3 % (2.0-8.0); NEUTROPHILS % 80.9 % (40.0-76.0); PLATELET 371 x1000/uL (130-400); RED BLOOD CELL COUNT 3.28 mill/uL (4.2-5.4); RED CELL DISTRIBUTION WIDTH 15.2 % (11.6-14.6)
[2021-11-28 06:28] LABS: PHOSPHORUS 2.9 mg/dL (2.5-4.9)
[2021-11-28] MEDS: ASPIRIN 81MG TABLET NG SCH (08:10)
[2021-11-28] MEDS: CARVEDILOL 12.5MG TABLET PO SCH ×2 (08:11→21:14)
[2021-11-28] MEDS: CALCIUM 1250MG TABLET (500MG ELEMENTAL CALCIUM) NG SCH ×3 (08:11→18:21)
[2021-11-28] MEDS: ISOSORBIDE DINITRATE 20MG TABLET NG SCH ×2 (08:11→18:23)
[2021-11-28] MEDS: ENOXAPARIN 60MG/0.6ML SYR SUBCUT SCH (08:12)
[2021-11-28] MEDS: PANTOPRAZOLE SODIUM 40 MG/VIAL IV SCH (08:12)
[2021-11-28 09:21] LABS: BG BASE EXCESS -1.2 mmol/L (-2.0-2.0); BG CARBOXYHEMOGLOBIN 0.3 % (0.5-1.5); BG DEOXYHEMOGLOBIN 0.8 % (0.0-5.0); BG METHEMOGLOBIN 0.2 % (0.0-1.5); BG OXYGEN SATURATION 99.2 % (92.0-98.5); BG OXYHEMOGLOBIN 98.7 % (94.0-97.0); BG PCO2 31.9 mmHg (35.0-45.0); BG PH 7.457 (7.350-7.450); BG PO2 203.6 mmHg (75.0-100.0); BG SAMPLE SITE RIGHT RADIAL; BG TOTAL HEMOGLOBIN 10.7 g/dL (12.0-18.0); BG VENT MODE MASK - BIPAP
[2021-11-28] MEDS: ACETYLCYSTEINE 100MG/ML 10% VIAL 4ML INH SCH (14:48)
[2021-11-29] VITALS (36 sets, daily range): BP systolic 130–167; BP diastolic 78–109
[2021-11-29] MEDS: IPRATROPIUM/ALBUTEROL 0.5-3(2.5)MG/3ML NEB HHN SCH ×4 (02:11→19:57)
[2021-11-29] MEDS: ACETYLCYSTEINE 100MG/ML 10% VIAL 4ML INH SCH ×3 (02:11→14:28)
[2021-11-29 05:22] LABS: HEMATOCRIT. 30.2 % (36.0-48.0); HEMOGLOBIN. 10.3 g/dL (12.0-16.0); MEAN CORPUSCULAR VOLUME 94.1 fL (81.0-99.0); MEAN PLATELET VOLUME 10.6 fl (7.4-10.4); PLATELET 426 x1000/uL (130-400); RED BLOOD CELL COUNT 3.21 mill/uL (4.2-5.4)
[2021-11-29 05:35] LABS: CHLORIDE 111 mEq/L (98-107)
[2021-11-29] MEDS: CLONIDINE 0.1MG TABLET PO PRN (06:36)
[2021-11-29] MEDS: ASPIRIN 81MG TABLET NG SCH (08:23)
[2021-11-29] MEDS: ENOXAPARIN 60MG/0.6ML SYR SUBCUT SCH ×2 (08:23→21:04)
[2021-11-29] MEDS: PANTOPRAZOLE SODIUM 40 MG/VIAL IV SCH (08:24)
[2021-11-29] MEDS: CARVEDILOL 12.5MG TABLET PO SCH ×2 (08:24→21:04)
[2021-11-29] MEDS: CALCIUM 1250MG TABLET (500MG ELEMENTAL CALCIUM) NG SCH ×3 (08:24→16:08)
[2021-11-29] MEDS: ISOSORBIDE DINITRATE 20MG TABLET NG SCH ×2 (08:24→16:08)
[2021-11-29 09:09] LABS: PLATELET ESTIMATE SLIGHTLY INCREASED
[2021-11-29] MEDS ORDERED: ENOXAPARIN 60MG/0.6ML SYR SUBCUT SCH (15:45)
[2021-11-30] VITALS (13 sets, daily range): BP systolic 128–162; BP diastolic 83–101
[2021-11-30] MEDS: IPRATROPIUM/ALBUTEROL 0.5-3(2.5)MG/3ML NEB HHN SCH ×4 (01:55→21:30)
[2021-11-30 07:26] LABS: BASOPHILS % 1.3 % (0.0-2.0); EOSINOPHILS % 0.6 % (0.0-5.0); HEMATOCRIT. 32.5 % (36.0-48.0); MEAN CORPUSCULAR HEMOGLOBIN 31.2 pg (28.0-32.0); MEAN CORPUSCULAR VOLUME 92.7 fL (81.0-99.0); MEAN PLATELET VOLUME 10.4 fl (7.4-10.4); MONOCYTES % 7.2 % (2.0-8.0); NEUTROPHILS % 70.9 % (40.0-76.0); PLATELET 445 x1000/uL (130-400); RED BLOOD CELL COUNT 3.51 mill/uL (4.2-5.4); RED CELL DISTRIBUTION WIDTH 14.9 % (11.6-14.6)
[2021-11-30] MEDS: ACETYLCYSTEINE 100MG/ML 10% VIAL 4ML INH SCH ×2 (09:07→16:31)
[2021-11-30] MEDS: ENOXAPARIN 60MG/0.6ML SYR SUBCUT SCH ×2 (09:42→21:28)
[2021-11-30] MEDS: PANTOPRAZOLE SODIUM 40 MG/VIAL IV SCH (09:42)
[2021-11-30] MEDS: CALCIUM 1250MG TABLET (500MG ELEMENTAL CALCIUM) NG SCH ×3 (09:42→17:27)
[2021-11-30] MEDS: ASPIRIN 81MG TABLET NG SCH (09:43)
[2021-11-30] MEDS: ISOSORBIDE DINITRATE 20MG TABLET NG SCH ×2 (09:43→17:28)
[2021-11-30] MEDS: CARVEDILOL 12.5MG TABLET PO SCH ×2 (09:43→21:28)
[2021-11-30] MEDS: ATORVASTATIN CALCIUM 20MG TABLET NG SCH (21:25)
[2021-12-01] VITALS (11 sets, daily range): BP systolic 113–151; BP diastolic 69–96
[2021-12-01] MEDS: ACETYLCYSTEINE 100MG/ML 10% VIAL 4ML INH SCH ×4 (01:50→21:15)
[2021-12-01] MEDS: IPRATROPIUM/ALBUTEROL 0.5-3(2.5)MG/3ML NEB HHN SCH ×4 (01:51→21:15)
[2021-12-01 08:15] LABS: BASOPHILS % 1.2 % (0.0-2.0); EOSINOPHILS % 1.3 % (0.0-5.0); HEMATOCRIT. 30.4 % (36.0-48.0); HEMOGLOBIN. 10.4 g/dL (12.0-16.0); LYMPHOCYTES % 32.8 % (20.0-50.0); MEAN CORPUSCULAR HEMOGLOBIN 31.5 pg (28.0-32.0); MEAN CORPUSCULAR VOLUME 91.9 fL (81.0-99.0); MEAN PLATELET VOLUME 10.4 fl (7.4-10.4); MONOCYTES % 6.9 % (2.0-8.0); NEUTROPHILS % 57.8 % (40.0-76.0); PLATELET 403 x1000/uL (130-400); RED BLOOD CELL COUNT 3.31 mill/uL (4.2-5.4); RED CELL DISTRIBUTION WIDTH 14.7 % (11.6-14.6)
[2021-12-01 09:04] LABS: PHOSPHORUS 2.7 mg/dL (2.5-4.9)
[2021-12-01] MEDS: CALCIUM 1250MG TABLET (500MG ELEMENTAL CALCIUM) NG SCH ×3 (09:53→17:11)
[2021-12-01] MEDS: ASPIRIN 81MG TABLET NG SCH (09:53)
[2021-12-01] MEDS: PANTOPRAZOLE SODIUM 40 MG/VIAL IV SCH (09:53)
[2021-12-01] MEDS: CARVEDILOL 12.5MG TABLET PO SCH ×2 (09:54→20:54)
[2021-12-01] MEDS: ENOXAPARIN 60MG/0.6ML SYR SUBCUT SCH ×2 (09:54→20:55)
[2021-12-01] MEDS: ISOSORBIDE DINITRATE 20MG TABLET NG SCH ×2 (09:54→17:11)
[2021-12-01] MEDS: ATORVASTATIN CALCIUM 20MG TABLET NG SCH (20:55)
[2021-12-02] VITALS (12 sets, daily range): BP systolic 112–153; BP diastolic 58–93
[2021-12-02] MEDS: IPRATROPIUM/ALBUTEROL 0.5-3(2.5)MG/3ML NEB HHN SCH ×4 (01:11→20:08)
[2021-12-02 06:54] LABS: BASOPHILS % 1.3 % (0.0-2.0); EOSINOPHILS % 1.4 % (0.0-5.0); HEMATOCRIT. 30.4 % (36.0-48.0); HEMOGLOBIN. 10.2 g/dL (12.0-16.0); MEAN CORPUSCULAR HEMOGLOBIN 31.1 pg (28.0-32.0); MEAN CORPUSCULAR VOLUME 92.4 fL (81.0-99.0); MONOCYTES % 7.1 % (2.0-8.0); NEUTROPHILS % 63.2 % (40.0-76.0); PLATELET 364 x1000/uL (130-400); RED BLOOD CELL COUNT 3.29 mill/uL (4.2-5.4)
[2021-12-02 07:30] LABS: PHOSPHORUS 2.3 mg/dL (2.5-4.9)
[2021-12-02] MEDS: ACETYLCYSTEINE 100MG/ML 10% VIAL 4ML INH SCH ×2 (08:30→13:42)
[2021-12-02] MEDS: ENOXAPARIN 60MG/0.6ML SYR SUBCUT SCH ×2 (09:58→21:00)
[2021-12-02] MEDS: CALCIUM 1250MG TABLET (500MG ELEMENTAL CALCIUM) NG SCH (09:58)
[2021-12-02] MEDS: ASPIRIN 81MG TABLET NG SCH (09:58)
[2021-12-02] MEDS: ISOSORBIDE DINITRATE 20MG TABLET NG SCH ×2 (10:00→17:29)
[2021-12-02] MEDS: PANTOPRAZOLE SODIUM 40 MG/VIAL IV SCH (10:01)
[2021-12-02] MEDS: CARVEDILOL 12.5MG TABLET PO SCH ×2 (10:03→21:00)
[2021-12-02] MEDS: POTASSIUM-SODIUM PHOSPHATE POWDER PACKET PO SCH ×2 (14:52→17:28)
[2021-12-02] MEDS: ATORVASTATIN CALCIUM 20MG TABLET NG SCH (21:00)
[2021-12-03] VITALS (12 sets, daily range): BP systolic 108–151; BP diastolic 66–96
[2021-12-03] MEDS: ACETYLCYSTEINE 100MG/ML 10% VIAL 4ML INH SCH ×3 (01:45→14:04)
[2021-12-03] MEDS: IPRATROPIUM/ALBUTEROL 0.5-3(2.5)MG/3ML NEB HHN SCH ×4 (01:45→20:40)
[2021-12-03 07:06] LABS: BASOPHILS % 2.2 % (0.0-2.0); EOSINOPHILS % 1.8 % (0.0-5.0); HEMATOCRIT. 31.2 % (36.0-48.0); HEMOGLOBIN. 10.4 g/dL (12.0-16.0); LYMPHOCYTES % 34.3 % (20.0-50.0); MEAN CORPUSCULAR HEMOGLOBIN 30.8 pg (28.0-32.0); MEAN CORPUSCULAR VOLUME 92.7 fL (81.0-99.0); MEAN PLATELET VOLUME 10.3 fl (7.4-10.4); MONOCYTES % 6.8 % (2.0-8.0); NEUTROPHILS % 54.9 % (40.0-76.0); PLATELET 334 x1000/uL (130-400); RED BLOOD CELL COUNT 3.36 mill/uL (4.2-5.4); RED CELL DISTRIBUTION WIDTH 14.7 % (11.6-14.6)
[2021-12-03 08:12] LABS: PHOSPHORUS 2.5 mg/dL (2.5-4.9)
[2021-12-03] MEDS: POTASSIUM-SODIUM PHOSPHATE POWDER PACKET PO SCH ×2 (09:53→17:12)
[2021-12-03] MEDS: ENOXAPARIN 60MG/0.6ML SYR SUBCUT SCH ×2 (09:54→20:36)
[2021-12-03] MEDS: CARVEDILOL 12.5MG TABLET PO SCH ×2 (09:54→20:37)
[2021-12-03] MEDS: ISOSORBIDE DINITRATE 20MG TABLET NG SCH ×2 (09:54→17:11)
[2021-12-03] MEDS: ASPIRIN 81MG TABLET NG SCH (09:54)
[2021-12-03] MEDS: PANTOPRAZOLE SODIUM 40 MG/VIAL IV SCH (09:55)
[2021-12-03] MEDS: AMLODIPINE 2.5MG TABLET PO SCH ×2 (10:00→20:37)
[2021-12-03] MEDS ORDERED: MAGNESIUM 2 G PREMIX 50 ML IV SCH (16:30)
[2021-12-03] MEDS: ATORVASTATIN CALCIUM 20MG TABLET NG SCH (20:36)
[2021-12-04] VITALS (12 sets, daily range): BP systolic 124–150; BP diastolic 73–95
[2021-12-04] MEDS: IPRATROPIUM/ALBUTEROL 0.5-3(2.5)MG/3ML NEB HHN SCH ×4 (01:03→20:05)
[2021-12-04 06:06] LABS: BASOPHILS % 1.5 % (0.0-2.0); EOSINOPHILS % 2.2 % (0.0-5.0); HEMATOCRIT. 31.7 % (36.0-48.0); HEMOGLOBIN. 10.4 g/dL (12.0-16.0); LYMPHOCYTES % 40.3 % (20.0-50.0); MEAN CORPUSCULAR HEMOGLOBIN 30.2 pg (28.0-32.0); MEAN CORPUSCULAR VOLUME 92.4 fL (81.0-99.0); MEAN PLATELET VOLUME 10.6 fl (7.4-10.4); MONOCYTES % 6.5 % (2.0-8.0); NEUTROPHILS % 49.5 % (40.0-76.0); PLATELET 307 x1000/uL (130-400); RED BLOOD CELL COUNT 3.42 mill/uL (4.2-5.4); RED CELL DISTRIBUTION WIDTH 15.1 % (11.6-14.6)
[2021-12-04 06:16] LABS: PHOSPHORUS 2.7 mg/dL (2.5-4.9)
[2021-12-04] MEDS: POTASSIUM-SODIUM PHOSPHATE POWDER PACKET PO SCH ×2 (09:33→17:00)
[2021-12-04] MEDS: PANTOPRAZOLE SODIUM 40 MG/VIAL IV SCH (09:33)
[2021-12-04] MEDS: ENOXAPARIN 60MG/0.6ML SYR SUBCUT SCH ×2 (09:34→23:08)
[2021-12-04] MEDS: ASPIRIN 81MG TABLET NG SCH (09:35)
[2021-12-04] MEDS: ISOSORBIDE DINITRATE 20MG TABLET NG SCH (09:35)
[2021-12-04] MEDS: CARVEDILOL 12.5MG TABLET PO SCH ×2 (09:35→23:09)
[2021-12-04] MEDS: AMLODIPINE 2.5MG TABLET PO SCH ×2 (09:36→23:09)
[2021-12-04] MEDS ORDERED: CLOPIDOGREL 75MG TABLET PO SCH (14:45)
[2021-12-04] MEDS: ATORVASTATIN CALCIUM 20MG TABLET NG SCH (23:09)
[2021-12-05] VITALS (10 sets, daily range): BP systolic 104–148; BP diastolic 37–88
[2021-12-05] MEDS: IPRATROPIUM/ALBUTEROL 0.5-3(2.5)MG/3ML NEB HHN SCH ×3 (02:00→15:02)
[2021-12-05 06:28] LABS: BASOPHILS % 1.3 % (0.0-2.0); EOSINOPHILS % 2.6 % (0.0-5.0); HEMATOCRIT. 32.5 % (36.0-48.0); HEMOGLOBIN. 10.5 g/dL (12.0-16.0); LYMPHOCYTES % 40.9 % (20.0-50.0); MEAN CORPUSCULAR HEMOGLOBIN 30.1 pg (28.0-32.0); MEAN CORPUSCULAR VOLUME 92.6 fL (81.0-99.0); MEAN PLATELET VOLUME 10.3 fl (7.4-10.4); MONOCYTES % 5.9 % (2.0-8.0); NEUTROPHILS % 49.3 % (40.0-76.0); PLATELET 282 x1000/uL (130-400); RED BLOOD CELL COUNT 3.51 mill/uL (4.2-5.4); RED CELL DISTRIBUTION WIDTH 15.1 % (11.6-14.6)
[2021-12-05 06:35] LABS: PHOSPHORUS 2.6 mg/dL (2.5-4.9)
[2021-12-05] MEDS: ENOXAPARIN 60MG/0.6ML SYR SUBCUT SCH ×2 (08:45→20:50)
[2021-12-05] MEDS: PANTOPRAZOLE SODIUM 40 MG/VIAL IV SCH (08:45)
[2021-12-05] MEDS: POTASSIUM-SODIUM PHOSPHATE POWDER PACKET PO SCH ×2 (08:45→08:53)
[2021-12-05] MEDS: AMLODIPINE 2.5MG TABLET PO SCH ×2 (08:45→20:53)
[2021-12-05] MEDS: CLOPIDOGREL 75MG TABLET PO SCH (08:46)
[2021-12-05] MEDS: CARVEDILOL 12.5MG TABLET PO SCH ×2 (08:46→20:52)
[2021-12-05] MEDS: ISOSORBIDE MONONITRATE 30MG TABLET SR 24HR PO SCH (08:46)
[2021-12-05] MEDS: ASPIRIN 81MG TABLET NG SCH (08:47)
[2021-12-05] MEDS: ATORVASTATIN CALCIUM 20MG TABLET NG SCH (20:51)
[2021-12-06] VITALS (9 sets, daily range): BP systolic 121–146; BP diastolic 61–87
[2021-12-06 06:20] LABS: BASOPHILS % 1.2 % (0.0-2.0); EOSINOPHILS % 2.3 % (0.0-5.0); HEMATOCRIT. 32.8 % (36.0-48.0); HEMOGLOBIN. 10.7 g/dL (12.0-16.0); LYMPHOCYTES % 30.4 % (20.0-50.0); MEAN CORPUSCULAR HEMOGLOBIN 30.2 pg (28.0-32.0); MEAN CORPUSCULAR VOLUME 92.7 fL (81.0-99.0); MEAN PLATELET VOLUME 10.3 fl (7.4-10.4); MONOCYTES % 7.2 % (2.0-8.0); NEUTROPHILS % 58.9 % (40.0-76.0); PLATELET 251 x1000/uL (130-400); RED BLOOD CELL COUNT 3.54 mill/uL (4.2-5.4); RED CELL DISTRIBUTION WIDTH 14.6 % (11.6-14.6)
[2021-12-06 06:34] LABS: CHLORIDE 112 mEq/L (98-107)
[2021-12-06 06:58] LABS: PHOSPHORUS 2.6 mg/dL (2.5-4.9)
[2021-12-06] MEDS: IPRATROPIUM/ALBUTEROL 0.5-3(2.5)MG/3ML NEB HHN SCH (08:34)
[2021-12-06] MEDS: PANTOPRAZOLE SODIUM 40 MG/VIAL IV SCH (09:04)
[2021-12-06] MEDS: AMLODIPINE 2.5MG TABLET PO SCH (09:05)
[2021-12-06] MEDS: ASPIRIN 81MG TABLET NG SCH (09:05)
[2021-12-06] MEDS: ENOXAPARIN 60MG/0.6ML SYR SUBCUT SCH (09:05)
[2021-12-06] MEDS: CLOPIDOGREL 75MG TABLET PO SCH (09:05)
[2021-12-06] MEDS: ISOSORBIDE MONONITRATE 30MG TABLET SR 24HR PO SCH (09:05)
[2021-12-06] MEDS: POTASSIUM-SODIUM PHOSPHATE POWDER PACKET PO SCH (09:05)
[2021-12-06] MEDS: CARVEDILOL 12.5MG TABLET PO SCH (09:05)
[2021-12-06] MEDS ORDERED: IOHEXOL-350 100 ML BOTTLE ONE (09:47)
== END 2021-12-06 15:24 | DRG 720 ==
LOC: ER 18:33 → MICUSO 21:57 → EDBEDREQTM 22:10 → EDBEDREQ 22:10 → ENRESERV 23:38 → 5EST 11-15 14:04 → MICUSO 11-20 16:51 → 3WST 11-29 15:23
PROVIDERS: ADMIT Hospitalist; ATTEND Hospitalist
PROC: 5A1955Z Respiratory Ventilation, Greater than 96 Consecutive Hours (ICD-10-PCS; principal; 2021-11-15)
PROC: 5A12012 Performance of Cardiac Output, Single, Manual (ICD-10-PCS; 2021-11-15)
PROC: 0BH17EZ Insertion of Endotracheal Airway into Trachea, Via Natural or Artificial Opening (ICD-10-PCS; 2021-11-15)
PROC: B54BZZA Ultrasonography of Right Lower Extremity Veins, Guidance (ICD-10-PCS; 2021-11-15)
PROC: 06HY33Z Insertion of Infusion Device into Lower Vein, Percutaneous Approach (ICD-10-PCS; 2021-11-15)
PROC: 5A12012 Performance of Cardiac Output, Single, Manual (ICD-10-PCS; 2021-11-22)
PROC: 0BH17EZ Insertion of Endotracheal Airway into Trachea, Via Natural or Artificial Opening (ICD-10-PCS; 2021-11-22)
PROC: 02HV33Z Insertion of Infusion Device into Superior Vena Cava, Percutaneous Approach (ICD-10-PCS; 2021-11-26)
PROC: B548ZZA Ultrasonography of Superior Vena Cava, Guidance (ICD-10-PCS; 2021-11-26)
DX: A41.9 Sepsis, unspecified organism (principal); I63.40 Cerebral infarction due to embolism of unspecified cerebral artery; I46.9 Cardiac arrest, cause unspecified; J96.01 Acute respiratory failure with hypoxia; K72.00 Acute and subacute hepatic failure without coma; I27.29 Other secondary pulmonary hypertension; E83.39 Other disorders of phosphorus metabolism; J15.9 Unspecified bacterial pneumonia; E44.0 Moderate protein-calorie malnutrition; T59.891A Toxic effect of other specified gases, fumes and vapors, accidental (unintentional), initial encounter; E83.51 Hypocalcemia; E88.09 Other disorders of plasma-protein metabolism, not elsewhere classified; N17.0 Acute kidney failure with tubular necrosis; I21.4 Non-ST elevation (NSTEMI) myocardial infarction; E78.5 Hyperlipidemia, unspecified; E87.5 Hyperkalemia; F17.200 Nicotine dependence, unspecified, uncomplicated; I13.0 Hypertensive heart and chronic kidney disease with heart failure and stage 1 through stage 4 chronic kidney disease, or unspecified chronic kidney disease; I25.10 Atherosclerotic heart disease of native coronary artery without angina pectoris; N18.9 Chronic kidney disease, unspecified; E87.0 Hyperosmolality and hypernatremia; E87.6 Hypokalemia; F14.129 Cocaine abuse with intoxication, unspecified; I42.0 Dilated cardiomyopathy; I50.43 Acute on chronic combined systolic (congestive) and diastolic (congestive) heart failure; M62.82 Rhabdomyolysis; G93.1 Anoxic brain damage, not elsewhere classified; G93.41 Metabolic encephalopathy; G81.91 Hemiplegia, unspecified affecting right dominant side; I08.0 Rheumatic disorders of both mitral and aortic valves; I65.23 Occlusion and stenosis of bilateral carotid arteries; J68.0 Bronchitis and pneumonitis due to chemicals, gases, fumes and vapors; F41.9 Anxiety disorder, unspecified; J43.9 Emphysema, unspecified; Z20.822 Contact with and (suspected) exposure to COVID-19; Z79.02 Long term (current) use of antithrombotics/antiplatelets; Z79.82 Long term (current) use of aspirin; Z82.49 Family history of ischemic heart disease and other diseases of the circulatory system; Z88.6 Allergy status to analgesic agent; Z78.1 Physical restraint status; Y92.89 Other specified places as the place of occurrence of the external cause; Z71.51 Drug abuse counseling and surveillance of drug abuser
CPT/HCPCS: 36415; 36600; 70498; 70551; 71045; 71275; 74018; 76700; 76937; 80048; 80053; 80061; 80305; 81003; 82330; 82375; 82550; 82553; 82805; 82962; 83036; 83605; 83735; 83880; 84100; 84443; 84484; 85025; 85379; 87070; 87426; 92610; 93005; 93306; 93880; 93970; 94002; 94003; 94640; 94660; 97162; 99291; A6261; C1725; C9113; J0456; J0461; J0610; J0696; J1650; J1940; J2060; J2250; J2270; J2370; J2405; J2543; J2920; J3010; J3475; J3480; J3490; J7030; J7040; J7042; J7050; J7060; J7070; J7608; P9041; Q9967